=== PATIENT | female | born 1980 | race African-American/Black ===

== ENCOUNTER 2018-09-16 11:53 | Emergency (ER) | payer OTHER ==
[2018-09-16] MEDS: IBUPROFEN 200 MG TAB PO (13:46)
[2018-09-16] MEDS: LIDOCAINE 1% (MDV) 20 ML INJ SC (13:46)
== END 2018-09-16 14:50 | disposition home or self-care (01) ==
LOC: FTE 11:53
DX: L02.31 Cutaneous abscess of buttock (principal)
CPT/HCPCS: 10060; 99283-25

== ENCOUNTER 2018-09-18 10:03 | Emergency (ER) | payer OTHER | END 2018-09-18 12:42 | disposition home or self-care (01) | LOC: FTE 10:03 | DX: L02.31 Cutaneous abscess of buttock (principal); Z87.891 Personal history of nicotine dependence | CPT/HCPCS: 99283 ==